=== PATIENT | female | born 1970 | race Caucasian/White ===

== ENCOUNTER 2016-07-04 11:18 | Emergency (ER) ==
[2016-07-04 11:31] VITALS: BP 180/105
[2016-07-04 11:39] LABS: MANUAL DIFF NEEDED? NO
[2016-07-04 11:42] LABS: BASO% 1.2 % (0.0-0.8); EOS# 0.34 X1000 (0.0-0.7); EOS% 4.9 % (0.0-10.0); HEMATOCRIT 39.7 % (37.0-47.0); HEMOGLOBIN 12.5 g/dL (12.0-16.0); LYMPH% 29.1 % (20.5-51.1); MCH 26.7 PG (27-31); MCHC 31.5 g/dL (33-37); MCV 84.6 FL (81-99); MONO# 0.42 X1000 (0.11-0.59); MONO% 6.1 % (1.7-9.3); MPV 9.8 FL (7.4-10.4); NEUT% 58.7 % (42.2-75.2); PLT 393 X1000 (130-400); RBC 4.69 XMIL (4.2-5.4)
[2016-07-04 12:09] LABS: AGAP 15; ALBUMIN 4.4 g/dL (3.5-5.0); ALKALINE PHOSPHATASE 96 U/L (32-104); BUN 7 mg/dL (8-22); CALCIUM 9.3 mg/dL (8.8-10.2); CHLORIDE 98 mmol/L (98-107); COSMO 270; GOT 23 U/L (10-30); GPT 20 U/L (10-36); POTASSIUM 4.1 mmol/L (3.5-5.1); SODIUM 136 mmol/L (136-145); TCO2 23 mmol/L (25-35); TOTAL BILIRUBIN 0.23 mg/dL (0.20-1.00); TOTAL PROTEIN 7.8 g/dL (6.3-8.3)
[2016-07-04 12:39] LABS: FREE T4 0.72 ng/dL (0.93-1.70)
[2016-07-04 14:05] LABS: URINE CULTURE NEEDED? NO; URINE MICRO REVIEW NEEDED? NO; URINE SOURCE CLEAN CATCH
--- NOTE | 2016-07-04 14:10 | PROVIDER DOCUMENTATION ---
HPI-General Adult - General Chief Complaint: Withdrawals Stated Complaint: NEED EVAL Time Seen by Provider: 07/04/16 13:17 Source: patient Allergies/Adverse Reactions: Patient Allergies Allergy/AdvReac Type Severity Reaction Status Date / Time No Known Allergies Allergy Verified 11/10/15 16:14 Home Medications: Home Medication List Medication Instructions Recorded Confirmed Last Taken Type Buspirone HCl [Buspar] 0 mg PO TID 11/30/14 11/10/15 11/30/14 07:00 History Cholecalciferol (Vit D3) [Vitamin 5,000 unit PO Q7D 11/30/14 11/10/15 11/30/14 07:00 History D3] Gabapentin [Neurontin] 800 mg PO TID 11/30/14 11/10/15 11/07/15 History Atenolol 0 mg PO DAILY 11/10/15 11/10/15 11/09/15 History Omeprazole [Prilosec] 0 mg PO DAILY 11/10/15 11/10/15 11/07/15 History Oxymorphone HCl [Opana ER] 15 mg PO BID 11/10/15 11/10/15 11/07/15 History Prednisone 20 mg PO DAILY #6 tablet 11/10/15 Unknown Rx Sucralfate [Carafate] 1 gm PO TID 11/10/15 11/10/15 11/09/15 History Tizanidine HCl [Zanaflex] 0 mg PO QHS 11/10/15 11/10/15 11/09/15 History - History of Present Illness -Gen Adult Nature of Presenting Problems: Pt is a 45 yof who came to the ED with a cc back pain and withdrawal. Pt reports she goes to a pain clinic for chronic back pain and takes opana. Pt reports she had back surgery in May and was on pain medicine and now she has ran out. pt reports she is having panic attacks. Location of Pain/Injury: reports: back Pain Radiation: reports: no radiation Quality of Pain: reports: sharp Severity: reports: mild Onset/Duration: reports: unsure Timing: reports: still present Associated Symptoms: reports: anxiety Similar Symptoms Previously?: No Recently seen or treated by another doctor?: No Review of Systems - Adult - REVIEW OF SYSTEMS - ADULT Constitutional: denies: chills, fever Eyes: denies: blurred vision, eye pain Ears, Nose, Mouth & Throat: reports: no symptoms reported Cardiovascular: reports: no symptoms reported Respiratory: reports: no symptoms reported Gastrointestinal: reports: no symptoms reported Genitourinary: reports: no symptoms reported Musculoskeletal: reports: back pain. denies: frequent leg cramps, muscle aches Integumentary: reports: no symptoms reported Neurological: reports: no symptoms reported Psychiatric: reports: anxiety, alcohol/drug dependence, panic attacks. denies: emotional problems, suicidal thoughts Endocrine: reports: no symptoms reported Hematologic/Lymphatic: reports: no symptoms reported Allergic/Immunologic: reports: no symptoms reported All Other Systems: Reviewed and Negative Past History - Adult - PAST MEDICAL HISTORY-ADULT Review of Records: reports: Old Records Reviewed, Nursing Assessment Review Major Childhood Illnesses: reports: denies history Cardiovascular: reports: HTN Respiratory: reports: denies history Gastrointestinal: reports: denies history Obstetrical/Gynecological: reports: denies history Genitourinary: reports: denies history Musculoskeletal: reports: chronic pain (back) Neurological: reports: denies history Psychiatric: reports: anxiety, depression Endocrine/Immune: reports: thyroid disorder Other Conditions: reports: cataract/glaucoma - PRIOR SURGERIES/PROCEDURES Surgical/Procedure History: reports: appendectomy, cholecystectomy, BTL, tonsillectomy, back/neck (back surgery ) - IMMUNIZATION STATUS Childhood Immunizations: See Nurse Assessment Flu Vaccine: See Nurse Assessment - FAMILY HISTORY Family History: reviewed, not pertinent Physical Exam-General - PHYSICAL EXAM-ADULT Initial Vital Signs Reviewed: Yes - CONSTITUTIONAL General Appearance: alert, mild distress - EYES Eyes: PERRL/EOMI, pink conjunctivae, fundi clear, no AV nicking - HEAD, EARS, NOSE, MOUTH & THROAT HENMT: normocephalic/atraumatic, moist mucous membranes, TMs normal, pharynx normal, other (left eye removed) - NECK Neck: non-tender - RESPIRATORY Respiratory: chest non-tender, lungs clear - CARDIOVASCULAR Cardiovascular: normal peripheral pulses, regular rate, rhythm, no edema, no gallop, no JVD, no murmur - GASTROINTESTINAL (ABDOMEN) Abdominal Exam: normal bowel sounds, non tender, soft - MUSCULOSKELETAL Back Exam: vertebral tenderness (from surgery one month ago) Extremity: non-tender, normal gait - SKIN Integumentary: normal color - NEUROLOGIC Neurologic: grossly normal - PSYCHIATRIC Psych/Mental Status: normal mood/affect, normal thought content, normal thought process, oriented x 3 Progress - PLAN OF CARE/RESULTS Progress/Plan/Lab Results: Vital Signs - 24 hr 07/04/16 11:28 Temperature 98.0 F Pulse Rate 85 Respiratory 22 Rate Blood Pressure 180/105 O2 Sat by Pulse 100 Oximetry Orders Category Date Time Status ALCOHOL BLOOD Stat Lab 07/04/16 11:37 Completed CBC WITH ELECTRONIC DIFF [HEME] Stat Lab 07/04/16 11:37 Completed COMPREHENSIVE METABOLIC PANEL [CHEM] Stat Lab 07/04/16 11:37 Completed FREE T4 Stat Lab 07/04/16 11:37 Completed TSH Stat Lab 07/04/16 11:37 Completed URINALYSIS W/POSS RFLX CULT [URINALYSIS] Stat Lab 07/04/16 11:48 Results URINE DRUG SCREEN Stat Lab 07/04/16 11:48 Received VITAMIN B12 Stat Lab 07/04/16 11:37 Completed Laboratory Tests 07/04/16 07/04/16 07/04/16 11:37 11:37 11:37 WBC 6.88 RBC 4.69 Hgb 12.5 Hct 39.7 MCV 84.6 MCH 26.7 L MCHC 31.5 L RDW Std Deviation 14.2 Plt Count 393 MPV 9.8 Immature Gran % (Auto) 0.0 Neut % (Auto) 58.7 Lymph % (Auto) 29.1 Otero % (Auto) 6.1 Eos % (Auto) 4.9 Baso % (Auto) 1.2 H Immature Gran # (Auto) 0.00 Neut # (Auto) 4.04 Lymph # (Auto) 2.00 Otero # (Auto) 0.42 Eos # (Auto) 0.34 Baso # (Auto) 0.08 Sodium 136 Potassium 4.1 Chloride 98 Carbon Dioxide 23 L Anion Gap 15 BUN 7 L Creatinine 0.6 Estimated GFR/1.73 m2 > 60 BUN/Creatinine Ratio 12 Glucose 92 Calculated Osmolality 270 Calcium 9.3 Total Bilirubin 0.23 AST 23 ALT 20 Alkaline Phosphatase 96 Total Protein 7.8 Albumin 4.4 Globulin 3.4 Albumin/Globulin Ratio 1.3 Vitamin B12 TSH Free T4 Urine Source Plasma/Serum Ethyl Alc 07/04/16 07/04/16 11:37 11:48 WBC RBC Hgb Hct MCV MCH MCHC RDW Std Deviation Plt Count MPV Immature Gran % (Auto) Neut % (Auto) Lymph % (Auto) Otero % (Auto) Eos % (Auto) Baso % (Auto) Immature Gran # (Auto) Neut # (Auto) Lymph # (Auto) Otero # (Auto) Eos # (Auto) Baso # (Auto) Sodium Potassium Chloride Carbon Dioxide Anion Gap BUN Creatinine Estimated GFR/1.73 m2 BUN/Creatinine Ratio Glucose Calculated Osmolality Calcium Total Bilirubin AST ALT Alkaline Phosphatase Total Protein Albumin Globulin Albumin/Globulin Ratio Vitamin B12 338 TSH 1.85 Free T4 0.72 L Urine Source CLEAN CATCH Plasma/Serum Ethyl Alc - REASSESSMENT Reassessment #1 Time Reassessed: 14:33 (Dr. Vickers discussed with pt that she would speak with Jackson Benoit. Pt agreed. ) Departure - Departure Time of Disposition Order: 14:34 DIAGNOSIS: Suicidal ideation, Withdrawal from opioids Disposition: ELOPEMENT 07 Certified Medical Emergency: Emergent Condition: Stable Attestation - Scribe Verification/Attestation Scribe:: Diana Guerrero Acting as Scribe for:: Rhett Trinh Scribe documention review:: This chart was documented by a scribe and accurately reflects the service the provider performed and the decisions made by the provider.
[2016-07-04 14:18] LABS: BILIRUBIN URINE NEGATIVE (NEGATIVE); BLOOD URINE NEGATIVE (NEGATIVE); COLOR STRAW; GLUCOSE URINE NEGATIVE (NEGATIVE); LEUKOCYTES URINE NEGATIVE (NEGATIVE); NITRITE URINE NEGATIVE (NEGATIVE); PH URINE 6.5; PROTEIN URINE NEGATIVE (NEGATIVE); SP GRAVITY URINE 1.006; TURBIDITY URINE CLEAR (CLEAR); UROBILINOGEN URINE NORMAL (NORMAL)
[2016-07-04 14:23] LABS: UR EPITHELIAL CELLS <10 /HPF (<10); URINE BACTERIA NEGATIVE /HPF; URINE RBC <10 /HPF (<10); URINE WBC <10 /HPF (<10)
[2016-07-04 14:25] LABS: UR AMPHETAMINES QUAL NONE DETECTED (NONE DETECT); UR BARBITUATES QUAL NONE DETECTED (NONE DETECT); UR BENZODIAZEPIN QUAL NONE DETECTED (NONE DETECT); UR CANNABINOIDS QUAL NONE DETECTED (NONE DETECT); UR COCAINE QUAL NONE DETECTED (NONE DETECT); UR METHADONE QUAL NONE DETECTED (NONE DETECT); UR OPIATES QUAL NONE DETECTED (NONE DETECT); UR OXYCODONE QUAL NONE DETECTED (NONE DETECT); UR PCP QUAL NONE DETECTED (NONE DETECT)
== END 2016-07-04 15:10 | disposition left against medical advice (07) ==
LOC: ED 11:18
DX: F11.23 Opioid dependence with withdrawal (principal); R45.851 Suicidal ideations; M54.9 Dorsalgia, unspecified; G89.29 Other chronic pain; I10 Essential (primary) hypertension; E07.9 Disorder of thyroid, unspecified; F41.9 Anxiety disorder, unspecified; F32.9 Major depressive disorder, single episode, unspecified; Z79.899 Other long term (current) drug therapy; Z79.52 Long term (current) use of systemic steroids
CPT/HCPCS: 36415; 80053; 81001; 82607; 84439; 84443; 85025; 99282; G0480; 80320; 80324; 80345; 80346; 80349; 80353; 80358; 80361; 80365; 83992